=== PATIENT | male | born 1940 | race Two or more races ===

== ENCOUNTER 2018-02-20 08:11 | Outpatient (CLI) | payer OTHER ==
[~2018-02-20] VITALS: Ht 152.4 cm; Wt 83.5 kg
== END 2018-02-20 08:35 | disposition home or self-care (01) ==
LOC: OFIC 805 08:11
DX: H90.3 Sensorineural hearing loss, bilateral (principal); J31.0 Chronic rhinitis; H93.13 Tinnitus, bilateral

== ENCOUNTER → 2018-02-20 | Outpatient (CLI) | payer OTHER | END | disposition home or self-care (01) | LOC: TOM 11:01 | DX: J32.8 Other chronic sinusitis (principal) ==

== ENCOUNTER 2018-03-20 08:49 | Outpatient (CLI) | payer OTHER ==
[~2018-03-20] VITALS: Ht 152.4 cm; Wt 83.5 kg
== END 2018-03-20 09:10 | disposition home or self-care (01) ==
LOC: OFIC 805 08:49
DX: H90.3 Sensorineural hearing loss, bilateral (principal); J31.0 Chronic rhinitis; H93.13 Tinnitus, bilateral

== ENCOUNTER 2018-03-23 13:05 | Outpatient (CLI) | payer OTHER | END 2018-03-23 13:25 | disposition home or self-care (01) | LOC: MRI 13:05 | DX: H90.3 Sensorineural hearing loss, bilateral (principal) | CPT/HCPCS: 70553; A9579 ==

== ENCOUNTER 2018-04-10 08:35 | Outpatient (CLI) | payer OTHER ==
[~2018-04-10] VITALS: Ht 152.4 cm; Wt 83.5 kg
== END 2018-04-10 08:50 | disposition home or self-care (01) ==
LOC: OFIC 805 08:35
DX: H90.3 Sensorineural hearing loss, bilateral (principal); H93.13 Tinnitus, bilateral

== ENCOUNTER 2021-12-30 13:52 | Emergency (ER) | payer OTHER ==
[~2021-12-30] VITALS: Ht 175.3 cm; Wt 78.0 kg
[2021-12-30] MEDS ORDERED: NORVASC10 MG PO (14:21)
[2021-12-30] MEDS ORDERED: INDAPAMIDE1.25 MG PO (14:21)
[2021-12-30] MEDS ORDERED: JANUMET XR 50-1 EACH PO (14:22)
[2021-12-30] MEDS ORDERED: AVAPRO300 MG PO (14:22)
[2021-12-30] MEDS ORDERED: DEXILANT60 MG (14:23)
[2021-12-30] MEDS ORDERED: MYSOLINE50 MG (14:23)
[2021-12-30] MEDS ORDERED: EZALLOR SPRINKL10 MG PO (14:24)
[2021-12-30] MEDS ORDERED: FENOFIBRATE130 MG PO (14:25)
[2021-12-30] MEDS ORDERED: NEURONTIN300 MG (14:25)
== END 2021-12-30 15:54 | disposition home or self-care (01) ==
LOC: ER 13:52
DX: S30.0XXA Contusion of lower back and pelvis, initial encounter (principal); W18.30XA Fall on same level, unspecified, initial encounter; Y92.9 Unspecified place or not applicable; G89.11 Acute pain due to trauma; Z88.5 Allergy status to narcotic agent